=== PATIENT | male | born 1975 | race Caucasian/White ===

== ENCOUNTER 2022-08-03 08:42 | Emergency (ER) | payer MEDICAID ==
[~2022-08-03] VITALS: Ht 162.6 cm; Wt 92.0 kg
[2022-08-03] MEDS ORDERED: ONDANSETRON HCL 4MG/2ML INJ IV STA (10:31)
[2022-08-03] MEDS ORDERED: FAMOTIDINE 20MG/2ML VIAL IV STA (10:31)
[2022-08-03] MEDS ORDERED: SODIUM CHLORIDE 0.9% 1,000 ML IV ONE (10:45)
[2022-08-03 11:38] LABS: HEMATOCRIT. 44.3 % (42.0-52.0); HEMOGLOBIN. 15.4 g/dL (14.0-18.0); MEAN CORPUSCULAR HEMOGLOBIN 29.2 pg (28.0-32.0); MEAN CORPUSCULAR VOLUME 84.4 fL (80.0-94.0); MEAN PLATELET VOLUME 10.2 fl (7.4-10.4); PLATELET 295 x1000/uL (130-400); RED BLOOD CELL COUNT 5.26 mill/uL (4.7-6.1); RED CELL DISTRIBUTION WIDTH 13.3 % (11.6-14.6)
[2022-08-03 11:49] LABS: PROTHROMBIN TIME 11.1 sec (9.6-11.0)
[2022-08-03 11:50] LABS: CHLORIDE 106 mEq/L (98-107)
[2022-08-03 12:04] LABS: PLATELET ESTIMATE NORMAL
[2022-08-03] MEDS ORDERED: ONDANSETRON HCL 4MG/2ML INJ IV SCH (12:15)
[2022-08-03] MEDS ORDERED: MORPHINE SULFATE 4 MG/ML CPJ (NOT FOR IM USE) IV SCH (12:15)
[2022-08-03 14:36] LABS: CLARITY URINE CLEAR (CLEAR); COLOR URINE YELLOW (YELLOW); KETONES URINE NEGATIVE (NEGATIVE); LEUKOCYTE ESTERASE URINE NEGATIVE (NEGATIVE); NITRITE URINE NEGATIVE (NEGATIVE); OCCULT BLOOD URINE NEGATIVE (NEGATIVE); PH URINE 5.5 (4.5-8.0); PROTEIN URINE NEGATIVE (NEGATIVE); SPECIFIC GRAVITY URINE 1.023 (1.005-1.030); UROBILINOGEN URINE 0.2 E.U./dL (0.2-1.0)
[2022-08-03] MEDS ORDERED: IOHEXOL-300 100 ML BOTTLE ONE (15:05)
[2022-08-03] MEDS ORDERED: KETOROLAC 30MG/ML VIAL IV NR (16:15)
[2022-08-03] MEDS ORDERED: HYDR-4001 MT (16:43)
[2022-08-03] MEDS ORDERED: TAMS-11 PO (16:43)
[2022-08-03 17:32] VITALS: BP 152/85
== END 2022-08-03 17:35 | disposition home or self-care (01) ==
LOC: ER 09:38
DX: N20.1 Calculus of ureter (principal); E78.00 Pure hypercholesterolemia, unspecified; Z98.890 Other specified postprocedural states
CPT/HCPCS: 36415; 74177; 80053; 81003; 83690; 85025; 85610; 96361; 96374; 96375; 99284; J1885; J2270; J2405; J7030; Q9967; Z7610